=== PATIENT | female | born 1990 | race African-American/Black ===

== ENCOUNTER 2016-08-21 06:40 | Inpatient (IN) | payer MEDICAID ==
--- NOTE | ~2016-08-21 | FD ---
ADMIT: 08/21/2016 RM/LOC: 221 [facility] MR#: [id number] 2620 [facility] [address] [place] [id number] YUAN GATICA [address] [address] Final Diagnosis SEX: F AGE: 26 : 1990 ADMISSION DATE: 08/21/2016 DISCHARGE DATE: 08/23/2016 FINAL DIAGNOSIS: Post dates intrauterine at 41 weeks 5 days. PROCEDURE: Spontaneous vaginal delivery. Sherita Durán MD/ milagro JOB #: [id number] CC: Pascale Marte MD, Attending Physician Pascale Marte MD, Family Physician
[~2016-08-21 06:40] MED LIST: COLACE100 MG PO; IRON325 MG PO; MACROBID100 MG PO; MOTRIN-DPS800 MG PO; PRENATAL VIT1 TAB PO; TYLENOL EXTRA500 MG PO
[2016-08-24] MEDS ORDERED: NIPPLECREAM TP (12:03)
[2016-08-24] MEDS ORDERED: DERMOPLAST SPRA56 GM TP (12:03)
[2016-08-24] MEDS ORDERED: TUCKS1 EACH TP (12:04)
[2016-08-24] MEDS ORDERED: LAN-O-SOOTHE7 GM TP (12:04)
--- NOTE | 2016-08-27 13:27 | OR ---
ADMIT: 08/21/2016 RM/LOC: 221 [facility] MR#: [id number] [address] [address] LESLYABHILASH YUAN WEN [address] [address] Operative/Delivery Room Report SEX: F AGE: 26 : 1990 SURGERY DATE: 08/21/2016 SURGEON: Sherita Durán MD PREOPERATIVE DIAGNOSES: 1. Term intrauterine at 41 weeks and 5 days. 2. Post dates. 3. History of female circumcision. POSTOPERATIVE DIAGNOSES: 1. Term intrauterine at 41 weeks and 5 days. 2. Post dates. 3. History of female circumcision. PROCEDURE: Spontaneous vaginal delivery. FINDINGS: 1. Viable male with scores of 8 and 9 and a weight of 10 pounds 2 ounces or 4592 g. 2. Intact placenta with three-vessel cord. 3. A second-degree perineal laceration, requiring repair. ANESTHESIA: None. ANTIBIOTICS: None. INDICATIONS FOR PROCEDURE: This is a 26-year-old -0-0-1, who presented to Labor and Delivery at 41 weeks 5 days for induction of labor for post dates. Her had otherwise been uncomplicated. She underwent induction with Pitocin and AROM. She progressed normally through labor and was found to be complete. DESCRIPTION OF PROCEDURE: With maternal expulsive efforts, head was delivered over intact perineum. The rest of the infant then delivered without difficulty. No nuchal cord was noted. The was placed on maternal ADMIT: 08/21/2016 RM/LOC: 221 [facility] MR#: [id number] [address] [address] YUAN GATICA [address] [facility] [address] [place] [address] Operative/Delivery Room Report SEX: F AGE: 26 : 1990 chest. Delayed cord clamping was employed x1 minute. The cord was then clamped and cut, and cord blood was collected. Placenta then delivered spontaneously intact. There was noted to be three-vessel cord. There was a second-degree perineal laceration. Lidocaine 1% without epinephrine was injected in the area. A 3-0 Vicryl was used to repair the laceration in usual fashion. ESTIMATED BLOOD LOSS: 250 mL. COMPLICATIONS: None. DISPOSITION: Mom stable in delivery room. to nursery. Sherita Durán MD/ bartolome JOB #: [id number] CC: Pascale Marte MD, Attending Physician Pascale Marte MD, Family Physician
--- NOTE | 2016-09-16 09:41 | HP ---
ADMIT: 08/21/2016 RM/LOC: 221 [facility] MR#: [id number] [id number] [place], [place] [address] YUAN GATICA [address] [address] History and Physical SEX: F AGE: 26 : 1990 DATE OF SERVICE: CHIEF COMPLAINT: Induction of labor. HISTORY OF PRESENT ILLNESS: This is a 26-year-old female, 2, para 1, with an intrauterine at 41-5/7th weeks' gestation with estimated date of confinement of 08/09/2016. Her estimated date of confinement is based off last menstrual period and consistent with an 8-week ultrasound. Her has been complicated by an abnormal 1-hour glucose tolerance test. She did have a normal 3-hour glucose tolerance test. She was also seen and evaluated by Maternal Medicine for possible dilated lateral ventricles. Anatomy at the time of her visit with Maternal Medicine appeared normal. LABORATORY DATA: Blood type is B positive. Antibody screen is negative. Hepatitis B surface antigen negative. RPR nonreactive. Rubella immune. HIV negative. Gonorrhea chlamydia is negative. Quad screen is normal. Diabetic screen 135. The 3-hour glucose tolerance test 84, 136, 98, 98. Group B strep is negative. PAST MEDICAL HISTORY: She denies hypertension, diabetes, asthma, kidney, or thyroid disease. PAST OBSTETRICAL HISTORY: She had one term spontaneous vaginal delivery, that baby weighed 8 pounds 6 ounces. PAST SURGICAL HISTORY: None. SOCIAL HISTORY: She is . She denies tobacco, alcohol, or drug use. ALLERGIES: NO KNOWN DRUG ALLERGIES. CURRENT MEDICATIONS: 1. vitamins. 2. Ferrous sulfate b.i.d. 3. Pepcid b.i.d. as needed. PHYSICAL EXAMINATION: VITAL SIGNS: Temperature is 96.8, blood pressure 124/78, pulse is 90, respirations 16. GENERAL: This is a pleasant female, in no acute distress. HEENT: Head is normocephalic, atraumatic. Pupils are equal, round, and reactive to light and accommodation. Extraocular muscles are intact. NECK: Supple. HEART: Regular rate and rhythm. LUNGS: Clear bilaterally. ABDOMEN: Soft, nontender, and nondistended. Gravid. EXTREMITIES: Nontender. ADMIT: 08/21/2016 RM/LOC: 221 [facility] MR#: [id number] [address] [address] YUAN GATICA [facility] [address] [place] [address] History and Physical SEX: F AGE: 26 : 1990 heart tones are 140s baseline, moderate variability is present, 15 x 15 accelerations are present. Decelerations are absent. Her cervix is 3 cm, 50%, -2 station, soft, posterior. Fetus is vertex. Estimated weight is 9 pounds. IMPRESSION: This is a 26-year-old female, 2, para 1, with an intrauterine at 41-5/7th weeks' gestation. PLAN: At this time, we do plan to admit the patient. We will start Pitocin IV, use assisted rupture of membranes as needed, and anticipate a spontaneous vaginal delivery. Pascale Marte MD/ radhal JOB #: [id number] CC: Pascale Marte MD, Attending Physician Pascale Marte MD, Family Physician
== END 2016-08-23 14:00 | disposition home or self-care (01) | DRG 775 ==
LOC: BC 06:40 → 2LDRP 06:40
PROVIDERS: ADMIT Obstetrics & Gynecology
PROC: 3E033VJ Introduction of Other Hormone into Peripheral Vein, Percutaneous Approach (ICD-10-PCS; principal; 2016-08-21)
PROC: 10907ZC Drainage of Amniotic Fluid, Therapeutic from Products of Conception, Via Natural or Artificial Opening (ICD-10-PCS; principal; 2016-08-21)
PROC: 10E0XZZ Delivery of Products of Conception, External Approach (ICD-10-PCS; principal; 2016-08-21)
PROC: 0KQM0ZZ Repair Perineum Muscle, Open Approach (ICD-10-PCS; principal; 2016-08-21)
DX: O48.0 Post-term pregnancy (principal); O34.83 Maternal care for other abnormalities of pelvic organs, third trimester; O70.1 Second degree perineal laceration during delivery; Z3A.41 41 weeks gestation of pregnancy; Z37.0 Single live birth